=== PATIENT | male | born 1960 | race Caucasian/White ===

== ENCOUNTER 2022-10-10 09:37 | Emergency (ER) | payer BC, SELFPAY ==
[2022-10-10 09:46] VITALS: BP 124/105; PULSE 64; RESP 16; TEMP 36.5; O2SAT 96
--- NOTE | 2022-10-10 09:58 | ED.URI ---
HPI - URI/Sore Throat General Chief Complaint: Upper Respiratory Infection Stated Complaint: sinus infection History of Present Illness HPI Narrative: Patient presents with nasal congestion and runny nose for the past 5 days. No shortness of breath no chest pain patient has taken several [id number] medications without any relief. Related Data Allergies Allergy/AdvReac Type Severity Reaction Status Date / Time morphine Allergy Unknown Skin Verified 03/31/17 21:20 Reaction Review of Systems Review of Systems: CONSTITUTIONAL: Denies chills, or sweats. Reports fever and generalized body aches EYES: Denies visual changes, redness, or discharge. ENT: Denies otalgia. Reports nasal congestion runny nose and sore throat CARDIOVASCULAR: Denies chest pain, palpitations, or edema. RESPIRATORY: Denies dyspnea. Reports occasional cough GASTROINTESTINAL: Denies abdominal pain, nausea, vomiting, or diarrhea. GENITOURINARY: Denies dysuria or hematuria. SKIN: Denies rash or itching. MUSCULOSKELETAL: Denies back pain, joint pain, or myalgia. Reports generalized body aches NEUROLOGIC: Denies headache, numbness, or weakness. PSYCHIATRIC: Denies anxiety or depression. PMFSH Comments At time of signature, agree with nursing past medical, surgical, social and family history. There is no relevant family history pertinent to the presenting complaint Exam Narrative: The patient is a well-developed, well-nourished in no acute distress. SKIN: Skin is warm and dry without erythema, swelling or exudate. There is good turgor. No tenting. HEAD: Atraumatic. Normocephalic. No temporal or scalp tenderness. EYES: Moist and bright. Sclera and conjunctivae normal. No discharge. PERRLA. Extraocular motions intact. Gross visual acuity intact. EARS: Pinna is normal shape and contour. Clear external auditory canals. TM pearly jara with good cone of light, no erythema or suppuration. Bilateral cerumen noted no gross hearing deficit. NOSE: pink, moist mucosa with good air movement. Clear rhinorrhea without nasal flaring. Septum midline. Mouth: moist mucous membranes. THROAT; mild erythema noted to posterior oropharynx with moderate postnasal drainage. Without exudate or ulceration.. Uvula midline. Normal movement of soft palate. NECK: Supple and nontender with full range of motion without discomfort. No meningeal signs. LUNGS: Equal and bilateral breath sounds without wheezes, rales or rhonchi. CHEST: The chest wall is without retractions or use of accessory muscles. HEART: Has a regular rate and rhythm without murmur, gallops, click or rub. ABDOMEN: Soft, nontender with positive active bowel sounds. No rebound tenderness. EXTREMITIES: Without cyanosis, clubbing or edema. Equal 2+ distal pulses and 2 second capillary refill noted. NEUROLOGIC: alert, active, . The patient moves all extremities with normal muscle strength. Normal muscle tone is noted. Normal coordination is noted. NO focal neurological findings noted. Course Course Level of Care: Express Care Visit Vital Signs Vital signs: Vital Signs Temperature 36.5 C 10/10/22 09:46 Pulse Rate 64 10/10/22 09:46 Respiratory Rate 16 10/10/22 09:46 Blood Pressure 124/105 H 10/10/22 09:46 Pulse Oximetry 96 10/10/22 09:46 Oxygen Delivery Room Air 10/10/22 09:46 Temperature 36.5 C 10/10/22 09:46 Pulse Rate 64 10/10/22 09:46 Respiratory Rate 16 10/10/22 09:46 Blood Pressure 124/105 H 10/10/22 09:46 Pulse Oximetry 96 10/10/22 09:46 Oxygen Delivery Room Air 10/10/22 09:46 Please NASH schedule a followup visit with your personal physician for further evaluation and treatment. Including recheck and discussion of your blood pressure. If your symptoms persist, change or worsen significantly before you can contact your personal physician then please, without delay, go to the emergency department for further evaluation MDM - URI/Sore Throat Differential Diagnos
== END 2022-10-10 10:04 | disposition home or self-care (01) ==
PROVIDERS: Emergency Provider Nurse Practitioner Family
DX: J06.9 Acute upper respiratory infection, unspecified (principal); J32.9 Chronic sinusitis, unspecified; J40 Bronchitis, not specified as acute or chronic
CPT/HCPCS: 99213; G0463

== ENCOUNTER 2022-10-20 15:52 | Emergency (ER) | payer BC, SELFPAY ==
[2022-10-20 16:00] VITALS: BP 154/94; PULSE 54; RESP 18; TEMP 36.7; O2SAT 97
--- NOTE | 2022-10-20 16:15 | ED.URI ---
HPI - URI/Sore Throat General Chief Complaint: Upper Respiratory Infection Stated Complaint: Sore Throat Time Seen by Provider: 10/20/22 16:15 Source: patient, RN notes reviewed and old records reviewed Mode of arrival: ambulatory Limitations: no limitations History of Present Illness HPI Narrative: 62-year-old male presents to the [facility] with complaints of a sore throat. Patient was seen on 10 October, prescribed amoxicillin and prednisone. Patient states that he was treated for sinus infection and his sinuses are now draining, runny nose. States that his sinuses do feel better. His cough is better however his throat is still hurting. Has not followed up with primary care provider Related Data Allergies Allergy/AdvReac Type Severity Reaction Status Date / Time morphine Allergy Unknown Skin Verified 03/31/17 21:20 Reaction Review of Systems Review of Systems: All systems reviewed & are unremarkable except as noted in HPI and below Constitutional: Constitutional: Reports no additional constitutional complaints Eyes: Eyes: Reports no additional eye complaints ENT: Reports as per HPI and Reports sore throat Cardiovascular: Cardiovascular: Reports no additional cardiovascular complaints, Denies chest pain and Denies dyspnea Respiratory: Respiratory: Reports no additional respiratory complaints, Denies chest congestion, Denies cough and Denies dyspnea Gastrointestinal: Gastrointestinal: Reports no additional gastrointestinal complaints, Denies abdominal pain, Denies nausea and Denies vomiting Musculoskeletal: Musculoskeletal: Reports no additional musculoskeletal complaints Integumentary/Breasts: Skin/Breast: Reports system reviewed and no additional complaints, except as docu Neurologic: Reports system reviewed and no additional complaints, except as documented Psychiatric: Psychiatric: Reports no additional psychiatric complaints Allergic/Immunologic: Allergic/Immunologic: Reports no additional allergic/immunologic complaints PMFSH Comments At the time of my signature, I reviewed and agree with the nursing past medical, surgical, social, and family history. There is no relevant family history pertinent to the patient complaint. Exam Const: General: cooperative, healthy appearing, comfortable, no acute distress, well developed, alert and well nourished Nutritional Appearance: well nourished Orientation/consciousness: patient oriented x3 Limitations: no limitations HENMT: Head: normal to inspection Ears: hearing grossly normal bilaterally, external ears normal, TM's normal bilaterally and EAC's normal Face/Nose/Sinus: Normal external nose present, Normal nares present, Normal nasal mucous membranes and turbinates present and normal facial exam Face and sinus: normal facial exam Mouth: Yes Normal oral and palatal mucosa present, Yes lip normal and Yes moist mucous membranes Throat: posterior oropharynx normal, tonsils normal, uvula midline and postnasal drainage Eyes: General: appearance normal, both eyes and all related structures Alignment and Position: alignment normal Periorbital: periorbital findings normal Pupils: Equal, round and reactive pupils present EOM: EOMs intact bilaterally Neck: Neck: normal visual inspection, full ROM, no lymphadenopathy and no meningeal signs Chest: Chest palpation & inspection: normal inspection of the chest Resp: Effort & Inspection: normal respiratory effort and able to speak in complete sentences Auscultation: clear to auscultation bilaterally, no crackles, no rales, no rhonchi and no wheezes Cardio: Rate: regular rate Rhythm: regular rhythm Back/Spine/Pelvis: Cervical Spine: cervical ROM normal Thoracic/Lumbar Spine: No thoracic spinal tenderness Skin: General skin exam: normal color and no rashes or lesions noted Lesions: no lesions Rashes: no rashes Wounds: no wounds Neuro: General: patient oriented x3, gait normal, tone normal, moves all extremities and no m
== END 2022-10-20 16:39 | disposition home or self-care (01) ==
PROVIDERS: Emergency Provider Nurse Practitioner
DX: R09.82 Postnasal drip (principal); J06.9 Acute upper respiratory infection, unspecified
CPT/HCPCS: 87081; 87880; 99213; G0463

== ENCOUNTER 2023-09-25 02:20 | Day surgery (SDC) | payer BC, SELFPAY ==
[2023-09-06 15:29] VITALS: BMI 32.8
[2023-09-25 07:45] VITALS: BP 134/80; PULSE 54; RESP 17; TEMP 36.4; O2SAT 97
[2023-09-25] MEDS: LACTATED RINGERS 1,000 ML 150 ML IV CONT (07:58)
--- NOTE | 2023-09-25 08:19 | P.PNAN_ITS ---
Anes - Initial Pre Proc Eval Procedure: Operation Date: 09/25/23 09:00 Proposed Procedures p Colonoscopy - Sanjay Watts MD Date/Time: 09/25/23 08:19 Surgeon: Sanjay Watts MD Pre Op Diagnosis: Personal history colon polyps Patient Data Age: 63 Gender: M Height: 1.8 m Weight: 106.5 kg Last Vital Signs Temp 97.5 F L 09/25/23 07:45 Pulse 54 L 09/25/23 07:45 Resp 17 09/25/23 07:45 BP 134/80 09/25/23 07:45 Pulse Ox 97 09/25/23 07:45 O2 Del Method Room Air 09/25/23 07:45 Allergies Allergy/AdvReac Type Severity Reaction Status Date / Time morphine Allergy Unknown Skin Verified 09/25/23 07:44 Reaction Home Medications Medication Instructions Recorded Confirmed Type diphenhydramine HCl 25 mg tablet 25 mg PO QHS PRN Pain 11/21/22 09/06/23 History (Benadryl Allergy) ibuprofen 200 mg tablet (Advil) 200 mg PO Q6H PRN Pain 11/21/22 09/06/23 History Patient hx anesthesia problems: none Family hx anesthesia problems: none Results Review: All pre-operative results and documents have been reviewed as part of the pre- operative evaluation. [facility] Family History Family History Other Alcoholism Hypertension Thyroid disease Social History Social History Years smoked: 10 Smoking status: Never smoker Tobacco type: cigarettes Second hand tobacco smoke exposure: No Alcohol intake: current Drinks per week: 10 Alcohol use details: 2-3 per day Substance use: never Substance use type: does not use Lack of Transportation: No Lack of Food: Never True Current Housing: I Have Housing Concerned About Future Housing: No Difficulty Paying Gas/Electric Bills: No Difficulty Paying for Meds: No Currently Unemployed: No Education: Bachelor's Degree Difficulty w/ Childcare or Family Care: No Living arrangements: with friend(s) Occupation/Education: occupation 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 Gender identity (if verbalized by the patient): Male Sexual Orientation (if Verbalized by the Patient): Straight or Heterosexual Spiritual care concerns: No Agree to blood products: Yes Anes - Eval Final PreProcedure Day of Procedure 09/25/23 08:19 Patient weight: obese Heart: regular rate and rhythm Lungs: clear to auscultation Airway: Mallampati scale class II Neurological: alert and oriented Last oral intake: >/= 8 hours ASA classification: II Emergent: no Anesthetic plan: proceed Anesthesia type and monitoring: general GIVS and standard monitoring Results Review: All pre-operative results and documents have been reviewed as part of the pre- operative evaluation. Informed Consent: The patient's anesthetic plan and its attendant risks and benefits were discussed with the patient/family/POA. Questions were solicited and answers provided to the satisfaction of the patient/family/POA.
--- NOTE | 2023-09-25 08:54 | PM.HPGS ---
History of Present Illness History of Present Illness Consent: Risks, benefits, and alternatives have been discussed and questions answered. Patient agrees to proceed with procedure. Chief complaint: Personal history colon polyps Narrative: Gerardo Mckenzie is a 63 year old male with colon polyp about 7 years ago Review of Systems Review of Systems: All systems reviewed & are unremarkable except as noted in HPI and below PMFSH Past Medical History Medical History (Updated 09/25/23 @ 08:54 by Sanjay Watts MD) Colon polyp Family History Family History Other Alcoholism Hypertension Thyroid disease Social History Social History Years smoked: 10 Smoking status: Never smoker Tobacco type: cigarettes Second hand tobacco smoke exposure: No Alcohol intake: current Drinks per week: 10 Alcohol use details: 2-3 per day Substance use: never Substance use type: does not use Lack of Transportation: No Lack of Food: Never True Current Housing: I Have Housing Concerned About Future Housing: No Difficulty Paying Gas/Electric Bills: No Difficulty Paying for Meds: No Currently Unemployed: No Education: Bachelor's Degree Difficulty w/ Childcare or Family Care: No Living arrangements: with friend(s) Occupation/Education: occupation 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 Gender identity (if verbalized by the patient): Male Sexual Orientation (if Verbalized by the Patient): Straight or Heterosexual Spiritual care concerns: No Agree to blood products: Yes Meds Home Medications and Allergies Home Medications Medication Instructions Recorded Confirmed Type diphenhydramine HCl 25 mg tablet 25 mg PO QHS PRN Pain 11/21/22 09/06/23 History (Benadryl Allergy) ibuprofen 200 mg tablet (Advil) 200 mg PO Q6H PRN Pain 11/21/22 09/06/23 History Allergies Allergy/AdvReac Type Severity Reaction Status Date / Time morphine Allergy Unknown Skin Verified 09/25/23 07:44 Reaction Vital Signs Vital Signs - 24 hr 09/25/23 07:45 Temperature 97.5 F L Pulse Rate 54 L Respiratory Rate 17 Blood Pressure 134/80 Pulse Oximetry 97 Oxygen Delivery Room Air Exam Const: General: comfortable and no acute distress HENMT: Face/Nose/Sinus: Normal nares present Eyes: General: appearance normal, both eyes and all related structures Neck: Neck: no JVD Resp: Auscultation: clear to auscultation bilaterally Cardio: Rate: regular rate Rhythm: regular rhythm GI: Inspection: non-distended GI Palp: Yes Soft to palpation Skin: General skin exam: normal color Neuro: General: gait normal Speech: normal speech Extrem: General: normal to inspection Psych: Mental Status: mental status grossly normal Assessment and Plan Assessment and plan (1) Colon polyp: Code(s): K63.5 - Polyp of colon Status: Acute Assessment and Plan: colonoscopy
[2023-09-25 09:18] VITALS: BP 127/75; PULSE 53; RESP 12; O2SAT 95
[2023-09-25 09:28] VITALS: BP 120/76; PULSE 52; RESP 16; O2SAT 95
[2023-09-25 09:38] VITALS: BP 119/78; PULSE 55; RESP 16; O2SAT 95
== END 2023-09-25 09:51 | disposition home or self-care (01) ==
PROVIDERS: PCP Family Medicine; Visit Provider Internal Medicine Gastroenterology
PROC: 0DJD8ZZ Inspection of Lower Intestinal Tract, Via Natural or Artificial Opening Endoscopic (ICD-10-PCS; CPT 45378; principal; 2023-09-25 09:00)
DX: Z12.11 Encounter for screening for malignant neoplasm of colon (principal); D12.3 Benign neoplasm of transverse colon; D12.4 Benign neoplasm of descending colon; D12.5 Benign neoplasm of sigmoid colon; K64.8 Other hemorrhoids; E66.9 Obesity, unspecified; Z68.32 Body mass index [BMI] 32.0-32.9, adult
CPT/HCPCS: 45380; 45385; 88305; J2704; J7120

== ENCOUNTER 2024-08-11 16:52 | Emergency (ER) | payer BC, SELFPAY ==
--- NOTE | 2024-08-11 17:01 | ED.LOWEXIN ---
HPI - Extremity Injury (Lower) General Chief Complaint: Wound/Laceration Stated Complaint: L LEG LACERATION Source: patient Mode of arrival: ambulatory Limitations: no limitations History of Present Illness HPI Narrative: Patient is a 64 year old male who presents to the clinic with complains of a laceration to his left leg. He sliced his leg on a piece of metal today. He is not concerned for needing stitches. He is worried about getting his tetanus updated since he doesn't know the last time he has had one. He did clean it off with hydrogen peroxide before he got here. Small amount of bleeding controlled on arrival. Related Data Home Medications Medication Instructions Recorded Confirmed Last Taken Type diphenhydramine HCl 25 mg tablet 25 mg PO QHS PRN Pain 11/21/22 08/11/24 Unknown History (Benadryl Allergy) ibuprofen 200 mg tablet (Advil) 200 mg PO Q6H PRN Pain 11/21/22 08/11/24 Unknown History Allergies Allergy/AdvReac Type Severity Reaction Status Date / Time morphine Allergy Unknown Skin Verified 08/11/24 17:01 Reaction Review of Systems Review of Systems: CONSTITUTIONAL: Denies body aches, fever, chills, or sweats. EYES: Denies visual changes, redness, or discharge. ENT: Denies rhinorrhea, congestion CARDIOVASCULAR: Denies chest pain, palpitations, or edema. RESPIRATORY: Denies cough or dyspnea. GASTROINTESTINAL: Denies abdominal pain, nausea, vomiting, or diarrhea. SKIN: Reports a laceration to his left calf. MUSCULOSKELETAL: Denies back pain, joint pain, or myalgia. NEUROLOGIC: Denies headache, numbness, tingling, or weakness. All systems reviewed & are unremarkable except as noted in HPI and below PMFSH Past Medical History Medical History (Updated 08/11/24 @ 17:12 by Abby Odonnell APRN) Colon polyp Family History Family History Other Alcoholism Hypertension Thyroid disease Social History Social History Years smoked: 10 Smoking status: Never smoker Tobacco type: cigarettes Second hand tobacco smoke exposure: No Alcohol intake: current Drinks per week: 10 Alcohol use details: 2-3 per day Substance use: never Substance use type: does not use Lack of Transportation: No Lack of Food: Never True Current Housing: I Have Housing Concerned About Future Housing: No Difficulty Paying Gas/Electric Bills: No Difficulty Paying for Meds: No Currently Unemployed: No Education: Bachelor's Degree Difficulty w/ Childcare or Family Care: No Living arrangements: with friend(s) Occupation/Education: occupation 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 Please see nursing chart for further information. There is no relevant family history pertinent to the presenting complaint. Exam Narrative: GENERAL: Well-appearing HEAD: Normocephalic, atraumatic. EYES: conjunctivae clear, and EOMI. ENT: Mucous membranes moist. Oropharynx without edema, erythema or lesions. NECK: Supple. No lymphadenopathy CHEST: Clear to auscultation. HEART: Regular rate and rhythm. SKIN: Warm, dry. 6 cm linear well approximated laceration noted to left calf. No bleeding. No drainage. NEURO: Alert and oriented x3. Course Course Level of Care: Express Care Visit Vital Signs Vital signs: Reviewed Procedures Laceration Laceration 1: Date: 08/11/24 Site: lower extremity and other Side (If applicable): left ====== Skin Level ====== Skin layer closed with: steri strips ====== Subcutaneous Layer ====== ====== Muscle Layer ====== ====== Tendon Layer ====== MDM - Extremity Injury (Lower) [facility] Narrative Medical decision making narrative: Discussed physical exam findings. Antibiotic given for infection prevention. Tetanus updated. Advised supportive measures and signs/symptoms to go to the ER. Pt is appropriate for outpatient treatment and follow up. Differential Diagnosis Differential diagnosis: Likely other (laceration, tetanus update) Critical Care Time Critical Care Time Critical Care Time: No Discharge Plan Discharge Clinical Impression: Laceration Patient Disposition: Home Condition: Stable Instructions: Antibiotic Form, Laceration (ED) Additional Instructions: Your tetanus was updated today. Steri-Strips will roll off on their own within 14 days Do not soak your wound. Avoid frequent or prolonged contact with water, including heavy perspiration. Keep the area clean and dry - cleanse with warm water and mild soap and allow to fully dry. Watch for worsening symptoms including pain, redness, swelling, streaking, pus/drainage, fever. Go to the ER with any of these symptoms or concerns. Follow up with primary care provider in 1 week as needed. Patient Language: Stateless Prescriptions: New cephalexin 500 mg capsule 500 mg PO Q12H 5 Days Qty: 10 0RF No Action diphenhydramine HCl [Benadryl Allergy] 25 mg tablet 25 mg PO QHS PRN (Reason: Pain) ibuprofen [Advil] 200 mg tablet 200 mg PO Q6H PRN (Reason: Pain) rosuvastatin 5 mg tablet 5 mg PO DAILY Qty: 30 0RF Follow-up/Referrals: Suzy Chaney MD [Primary Care Provider] - Time of Disposition: 17:23
[2024-08-11 17:04] VITALS: BP 147/81; PULSE 60; RESP 16; TEMP 35.8; O2SAT 98
[2024-08-11] MEDS: TETANUS,DIPHTHERIA,AC PERTUSSIS ADULT (0.5 ML) BOOSTRIX IM (17:19)
== END 2024-08-11 17:23 | disposition home or self-care (01) ==
PROVIDERS: PCP Family Medicine
DX: S81.812A Laceration without foreign body, left lower leg, initial encounter (principal); W45.8XXA Other foreign body or object entering through skin, initial encounter; Z23 Encounter for immunization; Z86.0100 Personal history of colon polyps, unspecified
CPT/HCPCS: 90471; 90715; 99213; G0463

== ENCOUNTER 2024-12-12 09:56 | Outpatient (CLI) | payer BC, SELFPAY ==
--- OUTSIDE RECORDS SUMMARY | 2024-12-12 10:30 | XMS_ITS | Clinical Summary ---
Author Organization [facility] [employer] Address [address] [place] [address] Care Team Providers Care Certified Solid Waste Facility Operator Name Role Phone Pcp, Wan Castro Primary Care Provider Unav ailable Source Comments [facility] [employer]non-owned Affiliates and Associated Physician Practices is amultiple site organization consisting of ambulatory clinics and hospital sitesin [place], [place], [place] and [place]. This disclosure is being madepursuant to the Care Everywhere program and may not contain all information available regarding this patient. Last updated 17.[facility] [employer] Allergies Active Allergy Reactions Criticality Noted Date Comments Morphine Itching 10/11/2016 Medications * Be aware that medications may not be up to date on this document. Alwaysverify current medications with the patient. atorvastatin (LIPITOR) 40 MG tablet Take 1 (one) tablet by mouth at bedtime 90 tablet 1 07/29/2020 Active Active Problems Problem Noted Date Diagnosed Date Diastasis recti 06/12/2017 Annual physical exam 10/11/2016 Need for hepatitis C screening test 10/11/2016 Prostate cancer screening 10/11/2016 Screen for colon cancer 10/11/2016 Eyelid lesion 10/11/2016 Erectile dysfunction 10/11/2016 Skin lesions 10/11/2016 Resolved Problems Problem Noted Date Diagnosed Date Resolved Date NEGATIVE PAST MEDICAL HISTOR Y - SEE PROBLEM LIST 10/11/2016 Immunizations Immunization Administration Dates Next Due Covid Pfizer primary monoval ent 12+ yr 0.3mL Purple cap 09/15/2020,08/28/2020 Family History Relation Name Status Comments Father Alive Mother Alive Social History Tobacco Use Types Packs/Day Years Used Date Smoking Tobacco: Never Smokeless Tobacco: Never Tobacco Cessation:Counseling Given: No Alcohol Use Standard Drinks/Week Comments Yes 10 (1 standard drink = 0.6 oz pu re alcohol) PHQ-2 Answer Date Recorded PHQ2 TOTAL SCORE 0 07/26/2020 Sex and Gender Information Value Date Recorded Sex Assigned at Male 07/26/2020 7:04 AM CDT Legal Sex Male 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 Gender Identity Male 07/26/2020 7:04 AM CDT Sexual Orientation Straight 07/26/2020 7: 05 AM CDT Last Filed Vital Signs Vital Sign Reading Time Taken Comments Blood Pressure 136/86 07/28/2020 10:27 AM CDT Pulse 56 07/28/2020 10:27 AM CDT Temperature 37.3 C (99.1 F) 03/16/2020 2:39 PM FIELD IDENTIFICATION SPECIALIST Respiratory Rate 18 06/12/2017 2:05 PM CDT Oxygen Saturation 97% 07/28/2020 10: 27 AM CDT Inhaled Oxygen Concentration - - Weight 108.2 kg (238 lb 9.6 oz) 08/20/2020 8:00 AM CDT Height 177.8 cm (5' 10) 08/20/2020 8:00 AM CDT Body Mass Index 34.24 08/20/2020 8:00 AM CDT Plan of Treatment Health Maintenance Due Date Last Done Comments COLOGUARD (AGES 45-75) - COLON CA SCREENING 1961 CT COLONOGRAPHY - COLON CA SCREENING 1961 FIT - COLON CA SCREENING 1961 FLEX SIG - COLON CA SCREENING 1961 HIV SCREENING 1976 DTAP/TDAP/TD VACCINES (1 - Tdap) 1980 PNEUMOCOCCAL VACCINE 50+ (1 of 1 - PCV) 07/11/2011 ZOSTER VACCINE (1 of 2) 07/11/2011 SCREENING FOR DIABETES 07/29/2023 , 07/28/2020, 10/11/2016, Additional history exists DEPRESSION SCREENING 03/27/2024 COVID-19 VACCINE (3 - season) 2024 09/15/2020, 08/28/2020 INFLUENZA VACCINE (#1) 2024 COLON MONITORING 06/21/2027 06/20/2017 COLONOSCOPY - COLON CA SCREENING 06/21/2027 06/20/2017 Colorectal Cancer Screening 06/21/2027 Respiratory Syncytial Virus (RSV) Vaccine Pt: or over 60 yrs (1 - 1-dose 75+ series) 2036 HEPATITIS C SCREENING Completed 10/11/2016 HEPATITIS B VACCINE Aged Out No longe r eligible based on patient's age to complete this topic HIB VACCINE Aged Out No longer eligi ble based on patient's age to complete this topic HPV VACCINE Aged Out No longer eligi ble based on patient's age to complete this topic MENINGOCOCCAL (Group B) VACCINE SHARED DECISION-MAKING Aged Out No longer eligible based on patient's age to complete this topic MENINGOCOCCAL GROUPS A/C/Y/W VACCINE Aged Out No longer eligible based on patient's age to complete this topic Procedures Procedure Name Priority Date/Time Associated Diagnosis Comments COMPREHENSIVE METABOLIC PANEL Routine 07/28/2020 11:07 AM CDT Annual physical exam ENDOSCOPY, COLON, SCREENING Routine 06/20/2017 HEPATITIS C ANTIBODY Routine 10/11/2016 11:39 AM CDT Need for hepatitis C screening test from Last 3 Months or Most Recently Relevant to Health Maintenance Results * COMPREHENSIVE METABOLIC PANEL (07/28/2020 11:07 AM CDT) Glucose 97 70 - 105 mg/dL [facility] ACCOUNT BILL BUN 14 8.4 - 25.7 mg/dL [facility] ACCOUNT BILL Creatinine 1.01 0.72 - 1.25 mg/dL [facility] ACCOUNT BILL eGFR by MDRD >60 >60 mL/min/1.7 3m2 [facility] ACCOUNT BILL eGFR by MDRD >60 >60 mL/min/1.7 3m2 [facility] ACCOUNT BILL Sodium 141 136 - 145 mmol/L [facility] ACCOUNT BILL Potassium 4.9 3.5 - 5.1 mmol/L [facility] ACCOUNT BILL Chloride 103 98 - 107 mmol/L [facility] ACCOUNT BILL CO2 29 23 - 31 mmol/L [facility] ACCOUNT BILL Calcium 9.5 8.4 - 10.4 mg/dL [facility] ACCOUNT BILL Protein Total 7.3 6.4 - 8.3 gm/dL [facility] ACCOUNT BILL Albumin 4.5 3.5 - 5.2 gm/dL [facility] ACCOUNT BILL Bilirubin Total 0.8 0.2 - 1.2 mg/dL [facility] ACCOUNT BILL Comment:Attention clinician: Reference Range change. Alkaline Phosphatase 53 40 - 150 U/L [facility] ACCOUNT BILL Comment:Attention clinician: Reference Range change. AST 22 5 - 34 U/L [facility] ACCOUNT BILL ALT 30 0 - 61 U/L [facility] ACCOUNT BILL Comment:FASTING Blood BLOOD SPECIMEN / Unknown 07/28/2020 11:07 AM CDT 07/28/2020 Narrative Resulting Agency Comment Lab Testing performed at: [address] [place] [id number] us Jens Krishna III, DO LAB - CHEMISTRY ORDERABLES Final Result Performing Organization Address [facility] Co de Phone Number [facility] ACCOUNT BILL [address] [place] [address] * ENDOSCOPY, COLON, SCREENING (06/20/2017) us Scanned Document GI PROCEDURE ORDERABLES Final R esult * HEPATITIS C ANTIBODY (10/11/2016 11:39 AM CDT) Hepatitis C Antibody Non Reactive Non Reactive [facility] ACCOUNT BILL Comment: Non Reactive - Antibodies to Hepatitis C virus (HCV) were no t detected, result does not exclude early acute HCV infection. Blood BLOOD SPECIMEN / Unknown 10/11/2016 11:39 AM CDT 10/11/2016 Narrative Resulting Agency Comment [facility] [address] [id number] Jens Krishna III, DO LAB - CHEMISTRY ORDERABLES Final Result Performing Organization Address City/State/[facility] Co de Phone Number [facility] ACCOUNT BILL [address] [place] [address] from Last 3 Months or Most Recently Relevant to Health Maintenance Insurance [employer] * Guarantor: KELSEY CHRISTIAN Account Type Relation to Patient Date of Phone Billing Address Personal/Family [address] [place] [address] SELF PAY NO INSURANCE Member Subscriber Plan / Payer (Ef fective for All Dates) Name:Kelsey Christian V Member ID:Not on file Relation to Subscriber:Not on file Name:KELSEY CHRISTIAN Subscriber ID:Not on file Address: [address] [place] [address] Payer ID:Not on file Group ID:Not on file Type:Self Pay Address: [place], [place] * Guarantor: KELSEY CHRISTIAN Account Type Relation to Patient Date of Phone Billing Address Personal/Family [address] [place] [address] SELF PAY NO INSURANCE Member Subscriber Plan / Payer (Ef fective for All Dates) Name:Kelsey Christian V Member ID:Not on file Relation to Subscriber:Not on file Name:KELSEY CHRISTIAN Subscriber ID:Not on file Address: [address] [place] [address] Payer ID:Not on file Group ID:Not on file Type:Self Pay Address: [place], [place] * Guarantor: KELSEY CHRISTIAN Account Type Relation to Patient Date of Phone Billing Address Personal/Family [address] [place] [address] SELF PAY NO INSURANCE Member Subscriber Plan / Payer (Ef fective for All Dates) Name:Kelsey Christian V Member ID:Not on file Relation to Subscriber:Not on file Name:KELSEY CHRISTIAN Subscriber ID:Not on file Address: [address] [place] [address] Payer ID:Not on file Group ID:Not on file Type:Self Pay Address: [place], [place] Care Teams Certified Solid Waste Facility Operator Relationship Specialty Start Date End Date Wan Earl PCP - General 10/21/22
--- NOTE | 2024-12-25 16:48 | P.SLEEP_ITS ---
Sleep Study Date of Study: 12/12/24 Ordering Provider: Marion Edwards PA-C Interpreting Physician: Carol Magaña MD Sleep Study Type: Split Polysomnogram Height: 1.8 m Weight: 104.326 kg Body Mass Index: 32.1 Neck Circumference (inches): 17.25 [place]: 11 Reason for Sleep Study Hypersomnolence Sleep History Gerardo Mckenzie is a 64-year-old man with poor quality sleep, waking up after 3-4 hours of sleep unable to return to sleep. He may stay awake 1-2 hours before being able to resume sleep. He occasionally awakens from sleep feeling short of breath. He frequently awakens at night with heartburn, belching or coughing. He always snores, and frequently this is loud enough that others complain. He occasionally has difficulty sleeping when he has a cold. He occasionally wakes up gasping for breath at night. He occasionally has breathing problems at night observed by others. He occasionally sweats excessively at night, notices his heart pounding or beating irregularly at night, and occasionally falls asleep during the day. He frequently falls asleep involuntarily especially after dinner while watching television. He never falls asleep while driving. He does not have loss of muscle tone with strong emotion. He does not have daytime difficulties due to excessive sleepiness. He does not feel paralyzed on waking or falling asleep. He rarely has vivid dreamlike scenes upon awakening or fal ling asleep. He never feels afraid to go to sleep. He rarely has nightmares. He rarely remembers his dreams. He frequently has racing thoughts when he wakes up during the night. He rarely feels sad or depressed. He occasionally has anxiety. He occasionally has muscular tension. He rarely notices parts of his body jerking. He rarely kicks at night and rarely has crawling or aching feelings in his legs. He occasionally has leg pain at night, occasionally awakens with morning jaw pain. He frequently grinds his teeth during sleep. He occasionally is bothered by pain during the day, occasionally awakened by pain at night, occasionally wakes up feeling stiff in the morning with sore achy muscles and occasionally awakens with pain in the neck and spine. He has insomnia, fatigue, concentration difficulties, and he takes antacids regularly. Normal bedtime is 10:00 p.m., falling asleep within 5 minutes, waking typically 3-4 times to urinate, is able to return to sleep after 1-2 hours. His normal wake time is 5:30 a.m.. On weekends, his bedtime is 11:00 p.m., wake time is 6:15 a.m.. He estimates getting between 5 and half to 7 hours of sleep most nights. He takes naps in the afternoon or evening. A short nap lasting 10-15 minutes may be refreshing. He is usually drowsy for an hour after waking. He feels better in the evening compared to other times of day. He uses Benadryl 1 or 2 tablets up to 4 times a week for allergies and to initiate sleep. Habits: Tobacco : former smoker Caffeine : 2-3 cups daily Alcohol : 2-3 servings regularl, 10 servings per week Recreational substances : none [facility] Past Medical History Medical History (Updated 12/26/24 @ 09:16 by Carol Magaña MD) Colon polyp Family History Family History Other Alcoholism Hypertension Thyroid disease Social History Social History Years smoked: 10 Smoking status: Never smoker Tobacco type: cigarettes Second hand tobacco smoke exposure: No Alcohol intake: current Drinks per week: 10 Alcohol use details: 2-3 per day Substance use: never Substance use type: does not use Lack of Transportation: No Lack of Food: Never True Current Housing: I Have Housing Concerned About Future Housing: No Difficulty Paying Gas/Electric Bills: No Difficulty Paying for Meds: No Currently Unemployed: No Education: Bachelor's Degree Difficulty w/ Childcare or Family Care: No Living arrangements: with friend(s) Occupation/Education: occupation 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 Gender identity (if verbalized by the patient): Male Sexual Orientation (if Verbalized by the Patient): Straight or Heterosexual Spiritual care concerns: No Agree to blood products: Yes Medications Home Medications ?Medication ?Instructions ?Recorded ?Confirmed ?Type diphenhydramine HCl 25 mg tablet 25 mg PO QHS PRN Pain 11/21/22 08/11/24 History (Benadryl Allergy) ibuprofen 200 mg tablet (Advil) 200 mg PO Q6H PRN Pain 11/21/22 08/11/24 History cephalexin 500 mg capsule 500 mg PO Q12H 5 days #10 ca ps 08/11/24 Rx rosuvastatin 5 mg tablet 5 mg PO DAILY #30 tabs 08/16 Rx Sleep Procedure A split night polysomnogram using the CELLFOR multi-channel system recorded the standard physiologic parameters including EEG, EOG, submentalis EMG, anterior tibialis EMG, EKG, body position, nasal and oral airflow using nasal pressure sensor and thermistor. Respiratory parameters of chest and abdominal movements were recorded with Respiratory Inductance Plethysmography belts. Oxygen saturation was recorded by pulse oximetry. Video monitoring was also performed. Sleep stages, periodic limb movements, and EEG arousals were scored in 30 second epochs according to the criteria of the AASM Scoring Manual. The Apnea-Hypopnea Index was calculated using CMS guidelines for definition of hypopnea while scoring respiratory events. The patient self-administered 2 Benadryl before beginning the test. After the baseline portion the patient met criteria for a titration with an AHI of 28.9 (p>4%) and desaturation to 84%. He used a large AirFit F20 fullface mask, initial pressure was CPAP 7 cm titrated to 9 cm, 11 cm, 13 cm, reduced to 11 cm due to emergent central and mixed apneas. He continued to have central apneas and mixed apneas once he became supine. He was then switched to BiPAP 13/9, titrated to 15/11 and 17/3. His best pressure appears to be CPAP 11 cm. At CPAP 11 cm, the patient spent 62 minutes in bed, 26 minutes awake, 21.5 minutes in non-REM and 14.5 minutes in REM. Sleep efficiency was 58.1%, the residual apnea-hypopnea index was 30 however most of these were due to central and mixed apneas. These are expected to improve with regular usage of PAP. The lowest saturation was 85%, the mean saturation was 92% at CPAP 11 cm. His bruxing decreased with CPAP. On his sleep questionnaire, he indicated that he frequently grinds his teeth at night. Sleep Architecture During the diagnostic portion of the study, the total recording time was 216.8 minutes. The total sleep time was 137.0 minutes. Sleep latency was 17.3 minutes. REM latency was 129.0 minutes. Sleep Efficiency was 63.2%. The patient had 35 awakenings for an awakening index of 15.3. Wake after sleep onset time was 62.5 minutes. The patient spent 40.0 minutes, 29.2% of total sleep time in Stage N1. The patient spent 67.0 minutes, 48.9% in Stage N2. The patient spent 5.5 minutes, 4.0% in Stage N3. The patient spent 24.5 minutes, 17.9% in Stage REM sleep. At 01:21:14 AM the patient was placed on PAP treatment and was titrated at pressures ranging from 7 cm to 11 cm, and due to central and mixed apnea, was switched to BiPAP 07/12, 08/02, final pressure was 17/13.. During the treatment portion of the study, the total recording time was 294.5 minutes. The total sleep time was 190.0 minutes. Sleep latency was 14.0 minutes. REM latency was 157.5 minutes. Sleep Efficiency was 64.5%. Wake after Sleep Onset time was 90.0 minutes. The patient spent 63.0 minutes, 33.2% of total sleep time in Stage N1. The patient spent 93.5 minutes, 49.2% in Stage N2. The patient spent 3.5 minutes, 1.8% in Stage N3. The patient spent 30.0 minutes, 15.8% in Stage REM. Respiratory Analysis During the diagnostic portion of the study, the patient had 45 hypopneas, 21 obstructive apneas, no mixed apneas, and 1 central apnea for an overall Apnea Hypopnea Index of 28.9 events per hour. The REM Apnea Hypopnea Index was 36.7. The NREM Apnea Hypopnea Index was 27.2. The patient had a Central Apnea Hypopnea Index of 0.4. There were no Respiratory Effort Related Arousals. The Respiratory Disturbance Index is 39.4 events per hour. There was no evidence of Didier- Grant Respirations. He had bruxing noted during the baseline. During the treatment portion of the study, the patient had 29 hypopneas, 14 obstructive apneas, 10 mixed apneas, and 43 central apneas for an overall Apnea Hypopnea Index of 30.3 events per hour. The REM Apnea Hypopnea Index was 18.0. The NREM Apnea Hypopnea Index was 32.6. The patient had a Central Apnea Hypopnea Index of 13.6. There were no Respiratory Effort Related Arousals. The Respiratory Disturbance Index is 37.6 events per hour. There was no evidence of Didier-Grant Respirations. Arousals During the diagnostic portion of the study, there were a total of 90 arousals for an arousal index of 39.4. There were 41 respiratory arousals for an index of 18.0. There were no periodic limb movement arousals. There were 7 isolated limb movement arousals for an index of 3.1. There were 42 spontaneous arousals for an index of 18.4. During the treatment portion of the study, there were a total of 116 arousals for an index of 36.6. There were 67 respiratory arousals for an index of 21.2. There were no periodic limb movement arousals for an index of -. There were 3 isolated limb movement arousals for an index of 0.9. There were 46 spontaneous arousals for an index of 14.5. Periodic Limb Movements During the diagnostic portion of the study, the patient had 28 isolated limb movements with an index of 12.3. The patient had 10 periodic limb movements with an index of 4.4. The patient had a total of 38 limb movements with a total limb movement index of 16.6. During the treatment portion of the study, the patient had 14 isolated limb movements with an index of 4.4. The patient had no periodic limb movements. The patient had a total of 14 limb movements with a total limb movement index of 4.4. Oximetry Data During the diagnostic portion of the study, the patient had an average oxygen saturation of 91.5% in wake with a minimum oxygen saturation of 87% and a maximum oxygen saturation of 96%. The patient had an average oxygen saturation of 90.7% in sleep with a minimum oxygen saturation of 84% and a maximum oxygen saturation of 96%. The patient had 94 oxygen desaturations resulting in an Oxygen Desaturation Index of 41.2. The patient spent 13.8 minutes, 6.9% of total sleep time with an oxygen saturation less than 88%. During the treatment portion of the study, the patient had an average oxygen saturation of 91.6% in wake with a minimum oxygen saturation of 84% and a maximum oxygen saturation of 97%. The patient had an average oxygen saturation of 91.7% in sleep with a minimum oxygen saturation of 84% and a maximum oxygen saturation of 97%. The patient had 123 oxygen desaturations resulting in an Oxygen Desaturation Index of 38.8. The patient spent 19.8 minutes, 6.7% of total sleep time with an oxygen saturation less than 88%. Snoring Profile During the diagnostic portion, snoring was mild to moderate, eliminated during the titration at 11 cm. Cardiac Profile During the diagnostic portion of the study, the EKG showed normal sinus rhythm. The average pulse rate was 56.7 bpm, minimum pulse rate was 49 bpm, maximum pulse rate was 89 bpm. No arrhythmias noted. During the treatment portion of the study, the EKG showed normal sinus rhythm. The average pulse rate was 51.8 bpm. The minimum pulse rate was 43 bpm. The maximum pulse rate was 89 bpm. No arrhythmias noted. EEG Profile Unremarkable, no evidence of seizures. Assessment and Plan Assessment and Plan (1) Obstructive sleep apnea: Code(s): G47.33 - Obstructive sleep apnea (adult) (pediatric) Status: Acute Assessment and Plan: This split night sleep study on 12/12/2024 shows overall moderate to severe obstructive sleep apnea, the apnea-hypopnea index is 28.9 using 4% criteria with desaturation 84% with moderate snoring, treatment emergent centrals occur during the titration, even at CPAP 9 cm, worse with BiPAP, desaturation to 87% with bruxism, treated with CPAP 11 cm using a large AirFit F20 fullface mask. At CPAP 11 cm, the patient spent 62 minutes in bed, 26 minutes awake, 21.5 minutes in non-REM and 14.5 minutes in REM. Sleep efficiency was 58.1%, the residual apnea-hypopnea index was 30 however most of these were due to central and mixed apneas. These are expected to improve with regular usage of PAP. The lowest saturation was 85% the mean saturation was 92%. His bruxism improved with this pressure. CPAP 11 cm is the optimal pressure, and this may need to be adjusted in follow up. The patient should be prescribed this ResMed equipment as well as tubing, filters and reservoir. This should be used with all episodes of sleep. Compliance should be reviewed within 31-90 days of starting therapy for usage greater than 4 hours per night greater than 70% of the nights. The patient should be asked about symptoms such as excessive daytime sleepiness, quality of sleep, decreased nocturia, increased mental functioning such as memory, mood, and concentration. BMI is 32. Weight management is advised. Clinical data suggests that weight loss of 10% can reduce the severity of respiratory events and snoring and improve AHI by as much as 25%. To reduce night time awakenings, he should avoid taking a nap in the evening while watching TV. With regular use of PAP, he should feel more alert even in the evenings. If he feels sleepy, he should go to bed with CPAP even if it is earlier than his usual bedtime. (2) Bruxism (teeth grinding): Code(s): F45.8 - Other somatoform disorders Status: Acute Assessment and Plan: This was present on the baseline, and resolved with CPAP. Data The data obtained during this sleep study is adequate for interpretation. Certification This sleep study has been reviewed by a board certified sleep medicine physician.
[2024-12-26 09:20] VITALS: BMI 32.1
== END 2024-12-13 06:42 | disposition home or self-care (01) ==
LOC: ANHCSM 09:56
PROVIDERS: PCP Student in an Organized Health Care Education/Training Program; Visit Provider Student in an Organized Health Care Education/Training Program
DX: G47.39 Other sleep apnea (principal); G47.33 Obstructive sleep apnea (adult) (pediatric); F45.8 Other somatoform disorders
CPT/HCPCS: 95811